=== PATIENT | female | born 1970 | race Caucasian/White ===

== ENCOUNTER 2017-01-19 09:15 | Emergency (ER) | payer MEDICARE ==
[~2017-01-19 09:15] MED LIST: ALBUTEROL MDI; ALBUTEROL17 GM INH; AMBIEN PO; AMITRYPTYLINE; AMITRYPTYLINE PO; ASPIRIN81 M1; ASPIRIN81 M1 PO; ASPIRIN81 M2; ATENOLOL; ATENOLOL PO; AVELOX400 M1 PO; BACITRACIN30 GM TOP; BENZONATATE PO; BLOOD PRESSURE MED; BUSPAR; BUSPIRONE HCL10 M1 PO; BUSPIRONE HCL10 MG PO; BUTALBITAL; CATAFLAM50 MG PO; CELEXA; CELEXA PO; CODEINE; COUGHTAB200 MG PO; CRESTOR; CRESTOR PO; CRESTOR10 MG PO; DEPAKENE250 MG PO; DEPAKOTE ER PO; DEPAKOTE250 MG PO; DESYREL100 MG PO; DICLOFENAC PO; ESGIC CAPSULE1 CAP PO; ESTRACE; ESTRACE0.5 MG; ESTRACE1 M1 PO; FIORICET 50-321 EACH PO; FIORICET1 TAB PO; FIORINAL CAPSUL1 CAP; FLAGYL PO; FLEXERIL PO; FLEXERIL10 M1 PO; FLEXERIL10 MG PO; HORMONES PO; HYDROXYZINE PAM25 MG PO; IBUPROFEN PO; IBUPROFEN800 MG PO; IMITREX; IMITREX PO; KEFLEX500 MG PO; KEPPRA750 MG PO; LEVOTHROID50 MCG; LEVOTHYROXINE PO; LEVOTHYROXINE50 MC1 PO; LEXAPRO PO; LORTAB 5/500 TA1 TA1 PO; MEDROL DOSEPAK4 MG DOB; MEDROL PO; MIDRIN CAPSULE1 CAP PO; NAPROXEN PO; NEURONTIN; NEURONTIN PO; NIASPAN PO; NO MEDICATIONS; NORFLEX100 M1 PO; OMEPRAZOLE40 M1 PO; OMEPRAZOLE40 MG PO; PEN-VEE K PO; PERCOCET PO; PERCOCET5/325 PO; PHENERGAN PO; PHENERGAN PR; PHENERGAN25 M1 DOB; PHENERGAN25 MG; PHENERGAN25 MG PO; PREDNISONE PO; PREMARIN PO; PREMARIN0.625 MG PO; PRILOSEC; PRILOSEC PO; PROMETHAZINE; PROMETHAZINE HC25 MG PO; REMERON30 MG PO; ROBITUSSIN A-C S5 ML PO; SILVADENE TOP; SYNTHROID; SYNTHROID PO; TOPAMAX; TOPAMAX PO; TOPAMAX200 MG PO; TOPROL XL PO; TREXIMET PO; TYLENOL #3 PO; TYLOX 5/500 CAP1 CAP PO; ULTRAM PO; UNKNOWN MEDS; VICODIN 5/1 TAB 5/50 PO; VICODIN 5/500 T1 TAB PO; VISTARIL PO; VISTARIL50 MG PO; VOLTAREN75 MG PO; Z-PAK; ZOFRAN ODT4 MG PO; ZOFRANODT SL
[2017-01-19] MEDS ORDERED: NEURONTIN PO (09:22)
[2017-01-19] MEDS ORDERED: TOPAMAX PO (09:22)
[2017-01-19] MEDS ORDERED: PHENERGAN PO (09:22)
[2017-01-19] MEDS ORDERED: ESTRADIOL PO (09:22)
[2017-01-19 09:44] LABS: URINE APPEARANCE CLEAR; URINE BILIRUBIN NEG (NEG); URINE COLOR YELLOW; URINE GLUCOSE NEG (NORM); URINE KETONE NEG (NEG); URINE LEUKOCYTE ESTERASE NEG (NEG); URINE NITRATE NEG (NEG); URINE PH 6.5 (5-8); URINE PROTEIN NEG (NEG); URINE SOURCE CLEAN CATCH; URINE SPECIFIC GRAVITY <=1.005 (1.003-1.035); URINE UROBILINOGEN 0.2 MG/DL (NORM)
[2017-01-19 09:45] LABS: MICRO INDICATED? NO; URINE BLOOD NEG (NEG)
[2017-01-21 14:54] LABS: CHLAMYDIA TRACH Not Detected (Not Detected); N GONOR Not Detected (Not Detected)
== END 2017-01-19 12:17 | disposition home or self-care (01) ==
LOC: SED 09:15
PROVIDERS: Emergency Medicine
DX: N76.0 Acute vaginitis (principal); I10 Essential (primary) hypertension; K21.9 Gastro-esophageal reflux disease without esophagitis; F17.210 Nicotine dependence, cigarettes, uncomplicated; Z90.49 Acquired absence of other specified parts of digestive tract; Z90.710 Acquired absence of both cervix and uterus; Z98.890 Other specified postprocedural states; Z79.899 Other long term (current) drug therapy; Z88.8 Allergy status to other drugs, medicaments and biological substances
CPT/HCPCS: 81003; 87210; 87491; 87591; 87808; 87905; 96372; 99283; J0696